=== PATIENT | male | born 1975 | race African-American/Black ===

== ENCOUNTER 2018-04-08 06:22 | Day surgery (SDC) | payer SELFPAY ==
[2018-03-31 15:18] VITALS: BMI 29.8
[2018-04-08] MEDS ORDERED: BUPIVACAINE HCL/EPINEPHRINE/PF 30 ML VIAL IJ ONE (07:09)
[2018-04-08] MEDS ORDERED: MIDAZOLAM HCL 2 MG/2 ML SINGLE DOSE VIAL ONE (07:19)
[2018-04-08] MEDS ORDERED: PROPOFOL 20 ML ONE (07:19)
[2018-04-08] MEDS ORDERED: LIDOCAINE HCL/PF 2% SDV 5ML VIAL ONE (07:49)
[2018-04-08] MEDS ORDERED: DEXAMETHASONE SOD PHOSPHATE 4 MG/1 ML VIAL ONE (07:49)
[2018-04-08] MEDS ORDERED: ceFAZolin SODIUM 1 GM VIAL ONE (07:49)
[2018-04-08] MEDS ORDERED: ONDANSETRON 4 MG/2 ML VIAL ONE (07:49)
[2018-04-08] MEDS ORDERED: TRANEXAMIC ACID 1000 MG/10 ML VIAL ONE (07:50)
[2018-04-08] MEDS ORDERED: BUPIVACAINE 0.25% /EPI 1:200,000 10 ML VIAL INF ONE (08:10)
[2018-04-08] MEDS ORDERED: oxyCODONE HCL 5 MG TABLET PO PRN ×2 (09:23)
[2018-04-08] MEDS ORDERED: ONDANSETRON 4 MG/2 ML VIAL IVPUSH PRN (09:23)
--- NOTE | 2018-04-08 09:24 | OP ---
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 Synovial proliferative disease Operation: RKA, partial lateral menisectomy (after attempted repair), subtotal synovectomy Post-Operative Diagnosis: Same as Pre-op Surgeon: Bhavesh Alfaro Anesthesiologist/STAPLE SIDE LASTER: Hakan Edge Anesthesia: General Specimens Removed: synovium Operative Report Dictated: Yes
--- NOTE | 2018-04-08 09:25 | DS ---
Physical Examination Vital Signs: Vital Signs Temperature 98.4 F 04/08/18 06:43 Pulse Rate 82 04/08/18 06:43 Respiratory Rate 16 04/08/18 06:43 Blood Pressure 137/83 04/08/18 06:43 O2 Sat by Pulse Oximetry (%) 100 04/08/18 06:43 Discharge Summary Reason For Visit: SYNOVIAL PROLIFERATION, MEDIAL MENISCAL TEAR RT KN Condition: Good - Instructions Diet, Activity, Other Instructions: Post Operative Instructions: Knee Arthroscopy Dr Bhavesh Alfaro 1. Pain following an arthroscopy is variable. Some patients will have more pain than others. You have been provided with a prescription for medication that contains a narcotic. You are not allowed to drive while on this medication. You should NOT take Tylenol (Acetaminophen) when taking the pain medication ( it will result in an overdose). Feel free to take medications such as Ibuprofen or Naprosyn in addition to the pain medicine if you do not have any problems with the NSAID class of medications. Aspirin 81 mg twice a day for two weeks for DVT prophylaxis 2. You should are allowed to remove the bandages and shower in 24 hours. You are not allowed to bathe or go swimming for 2 weeks. Put band-aids on the glue after your shower and do not put any creams or lotions over the incisions. 3. You are allowed to put all your weight on the leg. You should bend your knee as much as tolerated. 4. Apply ice to the knee for 15 min every hour or so. You may continue this for as many days as you like. 5. Please call the office to schedule a visit to have your wound checked. 6. If for any reason you believe you may have an infection or are concerned, please feel free to call me. I can be reached through our office number 24 hours a day. 7. Please call our office with any questions; we will review the surgical findings during your post operative visit. Disposition: HOME - Home Medications Comprehensive Discharge Medication List: Ambulatory Orders NK [No Known Home Medication] 03/31/18
[2018-04-08] MEDS ORDERED: LACTATED RINGERS SOLUTION 1,000 ML IV SCH (09:30)
[2018-04-08] MEDS ORDERED: oxyCODONE HCL 5 MG TABLET ONE (10:29)
[2018-04-08 10:31] VITALS: TEMP 97.7
[2018-04-08 11:25] VITALS: BP 141/79; PULSE 66
--- NOTE | 2018-04-12 16:02 | PATH ---
Surgical Pathology Report Patient Name: MONSE CLEMENTE Med. Rec. #: [id number] /Age/Gender: 1975 (Age: 42) / M Account: [id number] Location: [facility] AMBULATORY Taken: 04/08/2018 Received: 04/08/2018 Reported: 04/12/2018 Physicians: Bhavesh Alfaro M.D. Specimen(s) Received A: RIGHT KNEE SHAVINGS B: RIGHT KNEE MENISCUS Clinical History Synovial proliferation Medial meniscal tear right knee Final Diagnosis A. KNEE, RIGHT, ARTHROSCOPIC SHAVINGS: FIBROSYNOVIAL TISSUE SHOWING REACTIVE HYPERPLASIA AND CHRONIC INFLAMMATION. B. MENISCUS, RIGHT KNEE, EXCISION: FIBROCOLLAGENOUS TISSUE. Electronically Signed Christal Rosales M.D. Gross Description A. Received in formalin, labeled "right knee shavings," is a 4.5 x 4.3 x 0.3 cm. aggregate of taylor-yellow soft tissue fragments. A personal service representative portion is submitted in one cassette. B. Received in formalin labeled "right knee meniscus," is a 2.7 x 1.0 x 0.8 cm taylor-yellow, irregular portion of fibrous tissue, consistent with a portion of meniscus. Direct Care Professional sections are submitted in one cassette. 04/08/201804/08/2018
== END 2018-04-08 11:15 | disposition home or self-care (01) ==
LOC: FASU 06:22
PROVIDERS: ATTEND Orthopaedic Surgery
CPT/HCPCS: 88304-TC; 94760